=== PATIENT | female | born 1990 | race Caucasian/White ===

== ENCOUNTER 2016-10-06 17:07 | Outpatient (CLI) | payer OTHER ==
[~2016-10-06] VITALS: Ht 170.2 cm; Wt 106.8 kg
[~2016-10-06 17:07] MED LIST: ALLEGRA ALLERG180 MG PO; DASETTA1 EACH PO; HYDROCODON-ACE1 EAC7 PO; IRON325 M1 PO; MULTIPLE VITAM1 EAC1 PO; MULTIVITAMIN1 EAC2 PO; ONDANSETRON ODT4 MG PO; TYLENOL EXTRA500 MG PO; VITAMIN B-6100 MG PO
[2016-10-06 17:23] VITALS: BP 134/74
== END 2016-10-06 23:11 | disposition home or self-care (01) ==
LOC: LDRP-OP → 2WEST 17:08 → LDRP-OP 11-05 13:39
DX: O36.8130 Decreased fetal movements, third trimester, not applicable or unspecified (principal); O48.0 Post-term pregnancy; Z3A.40 40 weeks gestation of pregnancy
CPT/HCPCS: 59025; 76818; G0378

== ENCOUNTER 2016-10-10 08:29 | Inpatient (IN) | payer OTHER ==
[2016-10-10] VITALS (32 sets, daily range): BP systolic 99–136; BP diastolic 52–88
[~2016-10-10] VITALS: Ht 167.6 cm; Wt 129.3 kg
[2016-10-10 11:29] LABS: BASOPHIL COUNT 0.1 K/uL (0-0.1); EOSINOPHIL (%) 4.1 % (0-5); EOSINOPHIL COUNT 0.4 K/uL (0-0.3); HEMATOCRIT 31.9 % (36.0-46.0); IMMATURE GRANULOCYTE (%) 0.5 % (0.0-0.7); IMMATURE GRANULOCYTE COUNT 0.1 K/uL; LYMPHOCYTE COUNT 3.1 K/uL (1.0-2.8); MCH 26.9 PG (29.0-34.0); MCHC 32.9 G/DL (30.0-36.0); MCV 81.8 FL (83-99); MEAN PLAT.VOLUME 10.7 uM^3 (9.5-12.4); MONOCYTE (%) 6.6 % (3-12); MONOCYTE COUNT 0.7 K/uL (0-0.8); NEUTROPHIL (%) 58.2 % (45-76); PLATELET COUNT 382 K/uL (156-360); RBC DIS.WIDTH-CV 12.8 % (11.8-14.6); RBC DIS.WIDTH-SD 37.8 % (39-53); WHITE BLOOD COUNT 10.2 K/uL (4.1-10.2)
[2016-10-11] VITALS (16 sets, daily range): BP systolic 93–127; BP diastolic 51–74
[2016-10-12 03:07] VITALS: BP 109/68
[2016-10-12 06:28] LABS: BASOPHIL COUNT 0.1 K/uL (0-0.1); EOSINOPHIL (%) 1.3 % (0-5); EOSINOPHIL COUNT 0.2 K/uL (0-0.3); HEMATOCRIT 29.5 % (36.0-46.0); IMMATURE GRANULOCYTE (%) 0.6 % (0.0-0.7); IMMATURE GRANULOCYTE COUNT 0.1 K/uL; INSTRUMENT ABS NEUTROPHIL CT 9.3 K/uL; LYMPHOCYTE COUNT 3.5 K/uL (1.0-2.8); MCH 27.2 PG (29.0-34.0); MCHC 32.9 G/DL (30.0-36.0); MCV 82.9 FL (83-99); MEAN PLAT.VOLUME 10.6 uM^3 (9.5-12.4); MONOCYTE (%) 8.3 % (3-12); MONOCYTE COUNT 1.2 K/uL (0-0.8); NEUTROPHIL (%) 64.8 % (45-76); NEUTROPHIL COUNT 9.3 K/uL (1.8-6.4); PLATELET COUNT 350 K/uL (156-360); RBC DIS.WIDTH-CV 12.6 % (11.8-14.6); RBC DIS.WIDTH-SD 38.2 % (39-53); RED BLOOD COUNT 3.56 M/uL (3.80-5.20)
[2016-10-12 06:30] LABS: WHITE BLOOD COUNT 14.4 K/uL (4.1-10.2)
[2016-10-12 07:52] VITALS: BP 115/67
[2016-10-12 11:00] VITALS: BP 131/80
[2016-10-12 15:06] VITALS: BP 117/67
[2016-10-12 19:10] VITALS: BP 107/64
[2016-10-12 23:15] VITALS: BP 116/55
[2016-10-13] VITALS (7 sets, daily range): BP systolic 102–140; BP diastolic 54–76
[2016-10-14 08:01] VITALS: BP 116/69
[2016-10-14] MEDS ORDERED: DOCUSATE SODIU100 MG PO (08:58)
[2016-10-14] MEDS ORDERED: ENDOCET 5-3251 EACH PO (08:58)
[2016-10-14] MEDS ORDERED: IBUPROFEN800 MG PO (08:58)
[2016-10-14 11:18] VITALS: BP 129/69
== END 2016-10-14 14:30 | disposition home or self-care (01) | DRG 766 ==
LOC: LDRP-OP 08:29 → 2WEST 08:30 → LDRP-OP 11-05 23:40
PROVIDERS: Advanced Practice Midwife; Obstetrics & Gynecology
DX: O65.4 Obstructed labor due to fetopelvic disproportion, unspecified (principal); O48.0 Post-term pregnancy; O76 Abnormality in fetal heart rate and rhythm complicating labor and delivery; O99.02 Anemia complicating childbirth; D50.9 Iron deficiency anemia, unspecified; O99.824 Streptococcus B carrier state complicating childbirth; O99.844 Bariatric surgery status complicating childbirth; O99.214 Obesity complicating childbirth; E66.9 Obesity, unspecified; Z68.35 Body mass index [BMI] 35.0-35.9, adult; Z3A.40 40 weeks gestation of pregnancy; Z37.0 Single live birth
CPT/HCPCS: 85025; 86900; 86901; 88307; C1755; G0378; J0595; J0690; J1100; J2274; J2405; J2540; J3010; J7120; Q0169